=== PATIENT | male | born 1965 | race Asian ===

== ENCOUNTER → 2017-05-16 | Outpatient (CLI) | payer OTHER ==
[~2017-05-16] MED LIST: CHOL1TAB42 PO; LEVO175T3 PO
== END | disposition home or self-care (01) ==
LOC: C.LAB1850 09:52
PROVIDERS: ATTEND Internal Medicine Endocrinology, Diabetes & Metabolism
DX: E78.5 Hyperlipidemia, unspecified (principal); Z12.5 Encounter for screening for malignant neoplasm of prostate; N25.81 Secondary hyperparathyroidism of renal origin; E55.9 Vitamin D deficiency, unspecified

== ENCOUNTER → 2017-05-23 | Outpatient (CLI) | payer OTHER ==
[2017-05-23 10:34] LABS: HEMOGLOBIN A1C 5.8 % (4.5-5.6)
[2017-05-23 10:41] LABS: ALBUMIN 3.8 gm/dl (3.4-5.0); ALT/SGPT 31 U/L (12-78); BLOOD UREA NITROGEN 17 mg/dl (7-18); CALCIUM 8.5 mg/dl (8.5-10.1); CARBON DIOXIDE 26 mmol/L (21-32); CREATININE 0.79 mg/dl (0.60-1.40); GLUCOSE 103 mg/dl (70-99); POTASSIUM 3.7 mmol/L (3.5-5.1); SODIUM 140 mmol/L (136-145)
[2017-05-23 10:45] LABS: ALKALINE PHOSPHATASE 104 U/L (45-117); AST/SGOT 22 U/L (15-37); TOTAL PROTEIN 7.5 gm/dl (6.4-8.2)
== END | disposition home or self-care (01) ==
LOC: C.LAB1850 09:37
PROVIDERS: ATTEND Internal Medicine
DX: E78.5 Hyperlipidemia, unspecified (principal); R73.09 Other abnormal glucose

== ENCOUNTER → 2017-05-23 | Outpatient (CLI) | payer OTHER ==
--- NOTE | 2017-05-23 09:34 | DIAGNOSTIC IMAGING REPORT ---
ABDOMEN COMPLETE (US) CLINICAL HISTORY: Chronic periumbilical pain. COMPARISON STUDY: CT of the abdomen and pelvis April 26, 2008. FINDINGS: Increased hepatic echogenicity represents fatty infiltration. No hepatic lesions are noted. There are areas of sparing within the gallbladder fossa. The gallbladder is normal. There are no gallstones. The pancreas is obscured by overlying bowel gas. There is no biliary ductal dilatation. The size of the spleen is normal. The right kidney measures 11 cm and the left measures 10.8 cm. There is no hydronephrosis. Caliber of the abdominal aorta is normal. Visualized portions of the IVC are patent. No ascites is identified. No periumbilical abnormality was identified by sonography. IMPRESSION: 1. No gallstones or biliary ductal dilatation. 2. Fatty liver. 3. Obscured pancreas. 4. No hydronephrosis. Electronically signed by: Lincoln Ozuna M.D. 05/23/2017 9:32 AM Dictated Date/Time: 05/23/2017 9:28 AM
== END | disposition home or self-care (01) ==
LOC: C.ULTR 08:53
PROVIDERS: ATTEND Internal Medicine
DX: R10.33 Periumbilical pain (principal); K76.0 Fatty (change of) liver, not elsewhere classified

== ENCOUNTER → 2017-08-04 | Day surgery (SDC) | payer OTHER ==
[2017-07-20 07:44] VITALS: Ht 167.6 cm; Wt 82.7 kg
[~2017-08-04] VITALS: Ht 167.6 cm; Wt 82.7 kg
[~2017-08-04] MED LIST changes: +LEVO100T PO; -LEVO175T3 PO; +LIDOCAINE HCL 2% 2 ML VIAL (20MG/ML) ONE; +PROPOFOL IV EMULSION 10 MG/ML 20 ML VIAL IV ONE; +SODIUM CHLORIDE 0.9% 500ML 500 ML IV ONE
--- NOTE | 2017-08-04 11:44 | Endo History and Physical ---
History & Physical Date of Service: Aug 04, 2017. Chief Complaint: bloating, epigastric discomfort Referring Physician: Dr. Doug Limon History of Present Illness 52 yo male who presents for EGD secondary to bloating and epigastric pain. Past Medical History Neurological Disorder, Osteoporosis, Thyroid Disease Past Surgical History Hx Cardiac Surgery: No Hx Internal Defibrillator: No Hx Pacemaker: No Hx Abdominal Surgery: No Hx of Implantable Prosthesis: No Hx Post-Op Nausea and Vomiting: No Hx Cancer Surgery: No Hx Thoracic Surgery: No Hx Orthopedic: Yes (C5-6 ACDF (SOME DIFFICULTY CISU-SG-DKDRT AND RT), C3-4 DISCECTOMY) Hx Urinary Tract Surgery: No Family History None Social History Smoking Status: Never Smoker Hx Substance Use: No Hx Alcohol Use: No Allergies Coded Allergies: No Known Allergies (Verified , 08/04/17) Current Medications Reported Home Medications Medications Dose Route/Sig Max Daily Dose Days Date Category Dose Instructions Synthroid (Levothyroxine Sodium) 100 Mcg Tab 100 Mcg PO QAM 07/20/17 Reported Vitamin D (Cholecalciferol) 5,000 Unit Tab 1 Tab PO 5XWK 06/12/14 Reported MON,TUES,WED,THURS,FRI Vital Signs Weight (Kilograms): 82.73 Height (Feet): 5 Height (Inches): 6 Date Time Temp Pulse Resp B/P (MAP) Pulse Ox O2 Delivery O2 Flow Rate FiO2 08/04/17 11:25 36.7 67 18 109/78 (88) 94 Room Air Physical Exam General Appearance: WD/WN, no apparent distress Respiratory/Chest: Auscultation: breath sounds normal Cardiovascular: Heart Auscultation: RRR Abdomen: Bowel Sounds: normal Inspection & Palpation: soft, non-distended, no tenderness, guarding & rebound Assessment and Plan Assessment: 52 yo male who presents for EGD secondary to bloating and epigastric pain. Plan: Proceed with EGD.
--- NOTE | 2017-08-04 12:24 | GI REPORT ---
Procedure Date: 08/04/2017 11:21 AM Procedure: Upper GI endoscopy Indications: Epigastric abdominal pain, Abdominal bloating Medicines: Monitored Anesthesia Care Complications: No immediate complications. Estimated Blood Loss: Estimated blood loss: none. Procedure: Pre-Anesthesia Assessment: - Prior to the procedure, a History and Physical was performed, and patient medications and allergies were reviewed. The patient's tolerance of previous anesthesia was also reviewed. The risks and benefits of the procedure and the sedation options and risks were discussed with the patient. All questions were answered, and informed consent was obtained. Prior Anticoagulants: The patient has taken no previous anticoagulant or antiplatelet agents. ASA Grade Assessment: II - A patient with mild systemic disease. After reviewing the risks and benefits, the patient was deemed in satisfactory condition to undergo the procedure. After obtaining informed consent, the endoscope was passed under direct vision. Throughout the procedure, the patient's blood pressure, pulse, and oxygen saturations were monitored continuously. The Scope was introduced through the mouth, and advanced to the second part of duodenum. The upper GI endoscopy was accomplished without difficulty. The patient tolerated the procedure well. Findings: The esophagus was normal. A small hiatal hernia was present. Localized mild inflammation characterized by erythema was found in the gastric antrum. Biopsies were taken with a cold forceps for histology. The examined duodenum was normal. Impression: - Normal esophagus. - Small hiatal hernia. - Gastritis. Biopsied. - Normal examined duodenum. Recommendation: - Resume previous diet. - Continue present medications. - Await pathology results. - Return to primary care physician as previously scheduled. Lance Felipe DO 08/04/2017 12:24:09 PM This report has been signed electronically. Note Initiated On: 08/04/2017 11:21 AM I attest to the content of the Intraoperative Record and orders documented therein, exceptions below
--- NOTE | 2017-08-04 12:24 | Anesthesiology Progress Note ---
Anesthesia Post Op Note Date & Time Aug 04, 2017 at 12:24 Vital Signs Pain Intensity: 0 Vital Signs Past 12 Hours Date Time Temp Pulse Resp B/P (MAP) Pulse Ox O2 Delivery O2 Flow Rate FiO2 08/04/17 12:11 72 18 93/65 (74) 97 Room Air 08/04/17 11:25 36.7 67 18 109/78 (88) 94 Room Air Notes Mental Status: alert / awake / arousable, participated in evaluation Pt Amnestic to Procedure: Yes Nausea / Vomiting: adequately controlled Pain: adequately controlled Airway Patency, RR, SpO2: stable & adequate BP & HR: stable & adequate Hydration State: stable & adequate Anesthetic Complications: no major complications apparent
--- NOTE | 2017-08-04 12:29 | Discharge Instructions ---
Endoscopy Patient Instructions Date / Procedure(s) Performed Aug 04, 2017. EGD Allergy Information Coded Allergies: No Known Allergies (Verified , 08/04/17) Discharge Date / Findings Aug 04, 2017. Gastric antrum biopsies Hiatal hernia Medication Instructions OK to resume all medications today as prescribed Reported Home Medications Medications Dose Route/Sig Max Daily Dose Days Date Category Dose Instructions Synthroid (Levothyroxine Sodium) 100 Mcg Tab 100 Mcg PO QAM 07/20/17 Reported Vitamin D (Cholecalciferol) 5,000 Unit Tab 1 Tab PO 5XWK 06/12/14 Reported MON,,WED,,FRI Provider Instructions Activity Restrictions - No exercising or heavy lifting for 24 hours. - Do not drink alcohol the day of the procedure. - Do not drive a car or operate machinery until the day after the procedure. - Do not make any important decisions or sign important papers in 24 hours after the procedure. Following Day: - Return to full activity which may include returning to work/school. Diet Start your diet with liquids and light foods (jello, soup, juice, toast). Then eat your usual diet if not nauseated. Treatment For Common After Affects For mild abdominal pain, bloating, or excessive gas: - Rest - Eat lightly - Lie on right side Follow-Up Information Follow-up with Dr. Doug Limon as scheduled Anesthesia Information What You Should Know You have had a procedure that required some medicine to reduce anxiety and discomfort. This treatment is called moderate sedation. After receiving the treatment, you may be sleepy, but you will be able to breathe on your own. The effects of the treatment may last for several hours. Follow these instructions along with Activity/Diet recommendations noted above: * Do NOT do anything where dizziness or clumsiness would be dangerous. * Rest quietly at home today, then you can be up and about tomorrow. * Have a responsible person stay with you the rest of today. * You may have had an I.V. today. If so, you may take the dressing off later today. Recommendations Call your doctor if: * Trouble breathing * Continuous vomiting for more than 24 hours * Temperature above 101 degrees * Severe abdominal pain or bloating * Pain not relieved by pain medicine ordered * There is increased drainage or redness from any incision * A large amount of rectal bleeding greater than 2-3 tablespoons. (If you had a polyp/s removed or have hemorrhoids, a small amount of blood - from the rectum is to be expected.) * You have any unanswered questions or concerns. IN THE EVENT OF A SERIOUS EMERGENCY, GO TO THE NEAREST EMERGENCY ROOM Your discharge instructions were prepared by provider Lance Felipe. Patient Instructions Signature Page Leonora Schuster Patient (or Guardian) Signature/Date: I have read and understand the instructions given to me by my caregivers. Caregiver/RN/Doctor Signature/Date: The above-named patient and/or guardian has received patient instructions on this date. + Original Patient Signature Page (only) stays with chart. Please make copy for patient.
[2017-08-04 13:00] VITALS: BP 125/78; PULSE 72; O2SAT 98
== END | disposition home or self-care (01) ==
LOC: C.GI 10:21
PROVIDERS: ATTEND Internal Medicine
DX: K29.00 Acute gastritis without bleeding (principal); K29.50 Unspecified chronic gastritis without bleeding; R14.0 Abdominal distension (gaseous); K44.9 Diaphragmatic hernia without obstruction or gangrene; K21.9 Gastro-esophageal reflux disease without esophagitis; Z98.1 Arthrodesis status